=== PATIENT | male | born 1955 | race Caucasian/White ===

== ENCOUNTER 2017-07-15 07:18 | Outpatient (CLI) | payer BC ==
--- NOTE | 2017-07-15 09:03 | CT ---
CT ABDOMEN AND PELVIS WITH AND WITHOUT CONTRAST: HISTORY: Renal cyst history. COMPARISON: Outside facility renal ultrasound. FINDINGS: On the precontrast examination, no pericardial effusion. Lung bases are clear. No nephroureterolith iasis or hydroureteral nephrosis. No abnormal enhancing renal mass. There are multiple hypodensities of the liver suggestive of cysts. There is cholelithiasis without cholecystitis. The aortic contour is nonaneurysmal. The spleen is u nremarkable as well as the pancreas and adrenal glands. The skeleton is unremarkable. There is no filling defect within the renal calyces or renal pelves. IMPRESSION: 1. Bilateral renal cysts. 2. Multiple hepatic hypodensities suggestive of cysts. 3. Cholelithiasis. No evidence of cholecystitis. POS: [facility]
[2017-07-15] MEDS ORDERED: Iopamidol 370 76% 100 ML VIAL ONE (13:38)
== END 2017-07-15 07:19 | disposition home or self-care (01) ==
LOC: CT 07:18
PROVIDERS: ATTEND Nurse Practitioner Family
DX: N28.1 Cyst of kidney, acquired (principal); K80.20 Calculus of gallbladder without cholecystitis without obstruction; K76.89 Other specified diseases of liver
CPT/HCPCS: 74170

== ENCOUNTER 2017-09-17 07:30 | Outpatient (CLI) | payer BC | END 2017-09-17 07:31 | disposition home or self-care (01) | LOC: BICULT 07:30 | PROVIDERS: ATTEND Internal Medicine Nephrology | DX: N18.3 Chronic kidney disease, stage 3 (moderate) (principal); Q61.9 Cystic kidney disease, unspecified; Q61.02 Congenital multiple renal cysts | CPT/HCPCS: 76770 ==

== ENCOUNTER 2018-04-02 08:29 | Outpatient (CLI) | payer BC ==
--- NOTE | 2018-04-02 09:15 | RAD ---
CHEST TWO VIEWS: History: Cough. FINDINGS: Heart size and mediastinum are within normal limits. The lungs are clear of any infiltrative process. No significant bony findings. IMPRESSION: No active intrathoracic disease. POS: [facility]
== END 2018-04-02 08:30 | disposition home or self-care (01) ==
LOC: RAD-FRANK 08:29
PROVIDERS: ATTEND Nurse Practitioner Family
DX: R05 Cough (principal)
CPT/HCPCS: 71046

== ENCOUNTER 2018-06-09 13:46 | Outpatient (CLI) | payer BC ==
--- NOTE | 2018-06-09 15:16 | RAD ---
PA AND LATERAL CHEST XRAY: DATE: 06/09/2018. History Cough. COMPARISON: 04/02/2018. FINDINGS: Cardiac silhouette and pulmonary vasculature are within normal limits. The lungs are clear. Partial visualization of anterior cervical fusion is again present. There has been no interval change when compared to the prior exam. IMPRESSION: No acute cardiopulmonary process. POS: [facility]
== END 2018-06-09 13:47 | disposition home or self-care (01) ==
LOC: RAD-FRANK 13:46
PROVIDERS: ATTEND Nurse Practitioner Family
DX: R05 Cough (principal)
CPT/HCPCS: 71046

== ENCOUNTER 2018-06-24 07:10 | Emergency (ER) | payer BC ==
[2018-06-24] MEDS ORDERED: Ketorolac Tromethamine 60 MG/2 ML VIAL ONE (08:26)
[2018-06-24 08:30] LABS: Bilirubin Negative (Negative); Blood, Urine Negative (Negative); Clarity CLEAR (Clear); Glucose, Urine (Dipstick) Negative (Negative); Leukocyte Negative (Negative); Nitrite Negative (Negative); Protein, Urine (Dipstick) Negative (Neg-Trace); Specific Gravity, Urine 1.011 (1.002-1.036); Urobilinogen 0.2 mg/dL (0.2-1.0); pH, Urine 6.5 (5.0-9.0)
--- NOTE | 2018-06-24 08:35 | RAD ---
LUMBAR SPINE THREE VIEWS: History: Pain. Comparison: None. FINDINGS: Five lumbar type vertebral bodies. Lumbar spine vertebral body height is maintained. There is no frac ture. There is osteophyte formation in the distal thoracic spine and the lower lumbar spine. In the AP projection, mild rightward rotation which is presumed to be positional. IMPRESSION: No significant loss of disc space height. There is osteophyte formation. Non-emergent MRI if clinical ly warranted. POS: [facility]
== END 2018-06-24 09:25 | disposition home or self-care (01) ==
LOC: ERS 07:10
DX: M46.96 Unspecified inflammatory spondylopathy, lumbar region (principal); M54.5 Low back pain; K21.9 Gastro-esophageal reflux disease without esophagitis; I10 Essential (primary) hypertension; M10.9 Gout, unspecified; F41.9 Anxiety disorder, unspecified; Z79.899 Other long term (current) drug therapy
CPT/HCPCS: 72100; 81003; 96372; J1885

== ENCOUNTER 2018-10-28 07:09 | Outpatient (CLI) | payer BC ==
--- NOTE | 2018-10-28 09:40 | ULT ---
BILATERAL RENAL ULTRASOUND: Date: 10/28/18 HISTORY: Chronic kidney disease. Hypertension. FINDINGS: Both kidneys measure approximately 11.0 cm in length. No evidence of hydronephrosis. Cortical echogen icity appears normal. There is a 5.0 cm cyst in the superior left kidney and there is a 1.5 cm cyst exophytic mid left kidn ey. No solid lesions or mass seen. The urinary bladder is minimally distended and appears unremarkable. IMPRESSION: There are two left renal cystic lesions identified. Renal ultrasound exam otherwise unremarkable. POS: [facility]
== END 2018-10-28 07:10 | disposition home or self-care (01) ==
LOC: BICULT 07:09
PROVIDERS: ATTEND Internal Medicine Nephrology
DX: I12.9 Hypertensive chronic kidney disease with stage 1 through stage 4 chronic kidney disease, or unspecified chronic kidney disease (principal); N18.3 Chronic kidney disease, stage 3 (moderate); Q61.9 Cystic kidney disease, unspecified; N28.1 Cyst of kidney, acquired
CPT/HCPCS: 76770

== ENCOUNTER 2019-02-25 16:20 | Outpatient (CLI) | payer BC ==
--- NOTE | 2019-02-25 16:33 | RAD ---
EXAM: Two views chest PROVIDED CLINICAL HISTORY: Fever COMPARISON: 06/09/2018 FINDINGS: Cardiac silhouette and pulmonary vasculature are within normal limits. The lungs are clear. Mild deg enerative changes are again seen in the spine with mild right convex curvature of the thoracic spine. Incomplete visualization of postsurgical changes cervical spine are again seen. Chest is stable from prior exam. IMPRESSION: No acute cardiopulmonary process.
== END 2019-02-25 16:21 | disposition home or self-care (01) ==
LOC: RAD-FRANK 16:20
PROVIDERS: ATTEND Nurse Practitioner Family
DX: R07.9 Chest pain, unspecified (principal)
CPT/HCPCS: 71046

== ENCOUNTER 2019-07-20 19:52 | Emergency (ER) | payer BC ==
--- NOTE | 2019-07-20 21:28 | RAD ---
AP view of the pelvis INDICATION: Fall with left leg pain COMPARISON: None. FINDINGS: Bones: No acute fracture or subluxation is evident. Bone mineralization appears within normal limits. Hips: There is mild osteoarthrosis of the right and left hip. SI joints and symphysis pubis: Normal appearing. Intrapelvic contents: Within normal limits. IMPRESSION: No acute osseous abnormality.
--- NOTE | 2019-07-20 21:29 | RAD ---
XR Hip Lt 2-3 View INDICATION: Fall with left hip injury COMPARISON: None FINDINGS: Bones: No acute osseous abnormality. Bone mineralization appears within normal limits. Hip joint: There is mild osteoarthrosis of the left hip. SI joints and symphysis pubis: Radiographically normal. Intrapelvic contents: Visualized bowel gas pattern is within normal limits. Surrounding soft tissues: Radiographically normal. IMPRESSION: 1. No acute osseous abnormality.
--- NOTE | 2019-07-20 21:30 | RAD ---
XR Lumbar Spine 2 Or 3 View: 07/20/2019 9:01 PM Fall with low back pain COMPARISON: Prior exam dated June 24, 2018 FINDINGS: Fracture: None. Alignment: Spinal alignment appears within normal limits. Degenerative Change: Moderate multilevel spondylosis is stable Bone Mineralization:Normal Soft tissues: No acute abnormality. IMPRESSION: No acute fracture or subluxation demonstrated. Stable moderate multilevel lumbar spondylo sis.
== END 2019-07-20 23:09 | disposition home or self-care (01) ==
LOC: ERS 19:52
DX: M25.552 Pain in left hip (principal); M10.9 Gout, unspecified; K21.9 Gastro-esophageal reflux disease without esophagitis; I10 Essential (primary) hypertension; F41.9 Anxiety disorder, unspecified; Z79.899 Other long term (current) drug therapy; W01.0XXA Fall on same level from slipping, tripping and stumbling without subsequent striking against object, initial encounter
CPT/HCPCS: 72100; 72170

== ENCOUNTER 2019-08-03 07:39 | Outpatient (CLI) | payer BC ==
--- NOTE | 2019-08-03 09:13 | RAD ---
EXAM: 3 views of the lumbosacral spine HISTORY: Low back pain COMPARISON: 07/20/2019 FINDINGS: 3 lateral views of the lumbosacral spine shows normal height and alignment of the vertebral bodies and intervertebral discs without fracture or subluxation. Alignment is unchanged with flexion and extension. Small stable osteophytes are seen throughout the upper lumbar spine. Posterior facet arthrosis is seen in the lower lumbosacral spine. The sacroiliac joints are unremarkable. IMPRESSION: Degenerative changes of the lumbar spine with unchanged alignment with bending
--- NOTE | 2019-08-03 09:35 | MRI ---
MRI lumbar spine noncontrast HISTORY: Low back pain. Recent fall and injury. Left hip radiculopathy. FINDINGS: Images including the posterior abdomen show small rounded filling defects within the depend ent portion of the gallbladder lumen. Conus medullaris has a normal appearance. Vertebral body heights and alignment are maintained. There is desiccation of the lower 3 intervertebral discs. No abnormal bone marrow edema. T12-L1, L1-2: Mild osteophytosis. Central canal and neural foramina are patent. L2-3: Minimal disc bulge. No significant central canal or foraminal stenosis. L3-4: Small annular fissure within the right posterolateral aspect of the disc with slight right post erolateral disc bulge, not significantly compressing the nerve roots. There is osteophytosis of the facets. No significant central canal or foraminal stenosis. L4-5: Small bilateral posterolateral annular fissures of the disc with diffuse posterior and lateral disc bulge. Osteophytosis of the facets and posterior ligamentous thickening. Mild stenosis of the central canal. Mild to moderate stenosis of each neural foramen. L5-S1: Mild posterior disc bulge. Thecal sac is patent. Osteophytosis of the facets. Mild stenosis of each neural foramen. IMPRESSION: Mild degenerative changes of the lower lumbar spine. Small annular fissures involving the L3-4 and L4-5 discs with mild disc bulges. No focal disc herniation or nerve root compression. Cholelithiasis.
== END 2019-08-03 07:40 | disposition home or self-care (01) ==
LOC: TBSIIMAG 07:39
PROVIDERS: ATTEND Orthopaedic Surgery
DX: M54.5 Low back pain (principal); M47.816 Spondylosis without myelopathy or radiculopathy, lumbar region; M51.86 Other intervertebral disc disorders, lumbar region; K80.20 Calculus of gallbladder without cholecystitis without obstruction
CPT/HCPCS: 72100; 72148

== ENCOUNTER 2019-08-29 06:11 | Emergency (ER) | payer BC | END 2019-08-29 06:37 | disposition home or self-care (01) | LOC: ERS 06:11 | DX: M25.521 Pain in right elbow (principal); M10.9 Gout, unspecified; K21.9 Gastro-esophageal reflux disease without esophagitis; I10 Essential (primary) hypertension; F41.9 Anxiety disorder, unspecified; Z79.899 Other long term (current) drug therapy | CPT/HCPCS: 99283 ==

== ENCOUNTER 2019-08-30 08:11 | Emergency (ER) | payer BC ==
[2019-08-30] MEDS ORDERED: Ketorolac Tromethamine 30 MG/ML VIAL ONE (09:12)
== END 2019-08-30 09:50 | disposition home or self-care (01) ==
LOC: ERS 08:11
DX: M10.9 Gout, unspecified (principal); K21.9 Gastro-esophageal reflux disease without esophagitis; I10 Essential (primary) hypertension; F41.9 Anxiety disorder, unspecified; Z79.899 Other long term (current) drug therapy
CPT/HCPCS: 96372; 99283; J1885

== ENCOUNTER 2019-11-25 16:30 | Outpatient (CLI) | payer BC ==
--- NOTE | 2019-11-25 16:50 | RAD ---
Exam:Left hip 2 views HISTORY: Osteoarthritis. Pain. Patient fell 4 months ago. COMPARISON: 07/20/2019 FINDINGS: Preserved joint space. No fracture, cortical irregularity or periosteal reaction. IMPRESSION: No fracture. No significant change with regard to interval joint space height. There is s table mild osteophytic change
--- NOTE | 2019-11-25 16:51 | RAD ---
XR Knee Lt 2 View: 11/25/2019 12:00 AM CLINICAL INDICATION: Left knee pain COMPARISON: None. FINDINGS: Bones: No acute fracture is demonstrated. Joints: There are small marginal osteophytes affecting the major components of the left knee.. Soft Tissue: No acute abnormality.. IMPRESSION: Mild osteoarthrosis of the left knee..
== END 2019-11-25 16:31 | disposition home or self-care (01) ==
LOC: BICRAD 16:30
PROVIDERS: ATTEND Anesthesiology Pain Medicine
DX: M17.12 Unilateral primary osteoarthritis, left knee (principal); M16.12 Unilateral primary osteoarthritis, left hip; M25.752 Osteophyte, left hip

== ENCOUNTER 2019-12-30 07:45 | Outpatient (CLI) | payer BC ==
--- NOTE | 2019-12-30 09:15 | MRI ---
MRI LUMBAR SPINE WITHOUT CONTRAST: INDICATION: Lumbar radiculopathy. COMPARISON: Comparison is made to recent MRI lumbar spine dated 08/03/2019. FINDINGS: The lumbar vertebrae maintain normal height and alignment. Vertebral body signal is normal. Disk sp aces are preserved. L1-2: No significant disk bulge. Mild facet hypertrophy. No central canal or foraminal stenosis. L2-3: No significant disk bulge. Mild facet hypertrophy. No central canal or foraminal stenosis. L3-4: Mild broad-based disk bulge. There is an annular tear with asymmetric bulge/protrusion to the left. There is encroachment into the foraminal zone on the left and lateral extension of this later al left protrusion. This appears to contact the exiting left L3 nerve root as it exits the foramina on axial image. There is facet and ligamentous hypertrophy. Mild central canal stenosis. L4-5: There is a broad-based disk bulge. There is an annular fissure with asymmetric bulge/protrusi on to the left. Prominent facet and ligamentous hypertrophy. Mild to moderate central canal stenosi s. There is mild left foraminal encroachment due to the asymmetric disk which does extend into the f oraminal zone and extends laterally on the left. There is evidence of contact with the exiting left L4 nerve root. L5-S1: No significant disk bulge. Mild facet hypertrophy. No central canal or foraminal stenosis. IMPRESSION: 1. Annular fissures with asymmetric bulge/protrusion to the left at L3-4 and L4-5 as described above . Mild central canal stenosis at L3-4 and mild to moderate central canal stenosis at L4-5. 2. There continues to be evidence of small gallstones along the dependent wall of the gallbladder. Correlate with gallbladder ultrasound. POS: [facility]
--- NOTE | 2019-12-30 09:21 | MRI ---
MRI LEFT HIP WITHOUT CONTRAST: INDICATION: History of lumbar radiculopathy and left hip pain. COMPARISON: Left hip radiograph dated 11/15/2019. FINDINGS: There is a subchondral insufficiency fracture involving the superior femoral head with surrounding re active marrow edema involving the femoral head, femoral neck, and proximal femoral metastasis. There is mild subchondral collapse of the left superior femoral head. There is a reactive joint effusion involving the left hip joint. No corresponding fracture is evident involving the acetabulum. There is a subchondral cyst-like abnormality involving the posterior superior acetabulum. There is mild to moderate degenerative arthrosis of the left hip. There is a full-thickness tear involving the anter ior superior and superior acetabular labrum. There is degenerative intrasubstance signal involving t he acetabular labrum. The rectus femoris and hamstring origins appear within normal limits. No ilio psoas or trochanteric bursitis is evident. Visualized sciatic nerve is normal-appearing. Chondrolat eral right hip on the whole pelvis imaging demonstrates some mild degenerative arthrosis. IMPRESSION: 1. Subchondral insufficiency fracture of the left superior femoral head with mild subchondral collap se, surrounding marrow edema and reactive left hip effusion. 2. Anterior superior left acetabular labral tear with degenerative fraying of the acetabular labrum. 3. Mild to moderate degenerative arthrosis of the left hip. Mild degenerative arthrosis of the visu alized right hip. POS: [facility]
== END 2019-12-30 07:46 | disposition home or self-care (01) ==
LOC: TBSIIMAG 07:45
PROVIDERS: ATTEND Anesthesiology Pain Medicine
DX: M16.12 Unilateral primary osteoarthritis, left hip (principal); M51.16 Intervertebral disc disorders with radiculopathy, lumbar region; M48.061 Spinal stenosis, lumbar region without neurogenic claudication; K80.20 Calculus of gallbladder without cholecystitis without obstruction; S73.102A Unspecified sprain of left hip, initial encounter; M84.452A Pathological fracture, left femur, initial encounter for fracture
CPT/HCPCS: 72148

== ENCOUNTER 2020-02-16 07:55 | Outpatient (CLI) | payer BC, OTHER ==
[2020-02-16 14:27] LABS: Hemoglobin 15.5 g/dL (14.0-18.0); Mean Corpuscular HGB CONC 32.8 g/dL (32.0-36.0); Mean Corpuscular Volume 88.4 fL (78.0-98.0); Mean Platelet Volume 6.5 fL (7.4-10.4); Platelet Count 229 thou/uL (130-400); RBC Distribution Width 12.5 % (11.5-14.5); Red Blood Cell (RBC) Count 5.34 mill/uL (4.70-6.10)
[2020-02-16 14:31] LABS: Anion Gap 15 mmol/L (10-20); BUN (Urea Nitrogen) 15 mg/dL (8.4-25.7); Calc. Creatinine Clearance 0 mL/min (70-130); Calcium 9.4 mg/dL (7.8-10.44); Carbon Dioxide 23 mmol/L (23-31); Chloride 105 mmol/L (98-107); Estimated GFR-MDRD 55; Glucose 107 mg/dL (80-115); Potassium 4.2 mmol/L (3.5-5.1); Sodium 139 mmol/L (136-145)
[2020-02-16 14:44] LABS: PTT 33.6 sec (22.9-36.1); Prothrombin Time 12.7 sec (12.0-14.7)
[2020-02-17 13:02] LABS: SARS-CoV-2 MS2 Positive; SARS-CoV-2 N Gene Negative; SARS-CoV-2 S Gene Negative; SARS-CoV-2 by NAA Not Detected (NotDetected); SARS-CoV-2 orf1ab Negative
== END 2020-02-16 07:56 | disposition home or self-care (01) ==
LOC: LABBT 07:55
PROVIDERS: ATTEND Neurological Surgery
DX: Z01.818 Encounter for other preprocedural examination (principal); Z20.828 Contact with and (suspected) exposure to other viral communicable diseases; M48.061 Spinal stenosis, lumbar region without neurogenic claudication
CPT/HCPCS: 80048; 85027; 85610; 85730; 87635; 93005; 93010; U0003

== ENCOUNTER 2020-02-26 08:39 | Outpatient (CLI) | payer BC, OTHER ==
--- NOTE | 2020-02-26 10:44 | RAD ---
LEFT HIP 2 VIEWS: HISTORY: Pain. COMPARISON: 11/25/2019, left hip MRI 12/30/2019. FINDINGS: There is some superior femoral head subchondral collapse with some associated lucency. Mild osteoart hrosis and degenerative change. 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 Some irregularity of the femoral head superiorly, evidence for some probable subchondral collapse. N o fracture or dislocation. POS: [facility]
== END 2020-02-26 08:40 | disposition home or self-care (01) ==
LOC: RAD-FRANK 08:39
PROVIDERS: ATTEND Nurse Practitioner Family
DX: M25.552 Pain in left hip (principal); M25.852 Other specified joint disorders, left hip

== ENCOUNTER 2020-08-23 15:48 | Outpatient (CLI) | payer BC | END 2020-08-23 15:49 | disposition home or self-care (01) | LOC: BICRAD 15:48 | PROVIDERS: ATTEND Neurological Surgery | DX: M54.5 Low back pain (principal); M47.816 Spondylosis without myelopathy or radiculopathy, lumbar region | CPT/HCPCS: 72110 ==

== ENCOUNTER 2020-10-03 08:43 | Outpatient (CLI) | payer BC | END 2020-10-03 08:44 | disposition home or self-care (01) | LOC: TBSIIMAG 08:43 | PROVIDERS: ATTEND Neurological Surgery | DX: M54.5 Low back pain (principal); M48.061 Spinal stenosis, lumbar region without neurogenic claudication; Q05.7 Lumbar spina bifida without hydrocephalus; Q05.8 Sacral spina bifida without hydrocephalus; Z98.890 Other specified postprocedural states | CPT/HCPCS: 72148; 72158 ==

== ENCOUNTER 2021-02-20 07:33 | Outpatient (CLI) | payer BC | END 2021-02-20 07:34 | disposition home or self-care (01) | LOC: TBSIIMAG 07:33 | PROVIDERS: ATTEND Nurse Practitioner Family | DX: M48.062 Spinal stenosis, lumbar region with neurogenic claudication (principal); M51.86 Other intervertebral disc disorders, lumbar region; Z98.890 Other specified postprocedural states | CPT/HCPCS: 72148 ==

== ENCOUNTER 2021-04-06 11:28 | Outpatient (CLI) | payer BC, MEDICARE ==
[2021-04-06 13:25] LABS: Hemoglobin 15.1 g/dL (13.5-17.5); Mean Corpuscular HGB CONC 32.3 g/dL (32.0-36.0); Mean Corpuscular Hemoglobin 29.2 pg (27.0-33.0); Mean Corpuscular Volume 90.5 fl (81.2-95.1); Platelet Count 159 10x3/uL (150-450); RBC Distribution Width 13.7 % (11.5-14.5); Red Blood Cell (RBC) Count 5.17 10x6/uL (4.32-5.72)
[2021-04-06 13:36] LABS: Bilirubin Neg (Negative); Blood, Urine Negative (Negative); Clarity Clear (Clear); Glucose, Urine (Dipstick) Normal (Negative); Ketone, Urine Negative (Negative); Leukocyte 25 (Negative); Nitrite Negative (Negative); Protein, Urine (Dipstick) Negative (Neg-Trace); Specific Gravity, Urine 1.005 (1.002-1.036); Urobilinogen Normal mg/dL (Less than 2)
[2021-04-06 13:43] LABS: Anion Gap 16 mmol/L (10-20); BUN (Urea Nitrogen) 17 mg/dL (8.4-25.7); Calc. Creatinine Clearance 0 mL/min (70-130); Calcium 9.7 mg/dL (7.8-10.44); Carbon Dioxide 25 mmol/L (23-31); Chloride 104 mmol/L (98-107); Glucose 97 mg/dL (80-115); Potassium 4.1 mmol/L (3.5-5.1); Sodium 141 mmol/L (136-145)
[2021-04-06 14:28] LABS: Bacteria/HPF None Seen HPF (None Seen); RBC/HPF None Seen HPF (0-3); Squamous Epithelial 0-3 HPF (0-3); WBC/HPF None Seen HPF (0-3)
[2021-04-07 01:42] LABS: SARS-CoV-2 PCR by NAA Not Detected (NotDetected)
== END 2021-04-06 11:29 | disposition home or self-care (01) ==
LOC: LABBT 11:28
PROVIDERS: ATTEND Urology
DX: Z01.818 Encounter for other preprocedural examination (principal); N40.1 Benign prostatic hyperplasia with lower urinary tract symptoms; N32.81 Overactive bladder; Z20.822 Contact with and (suspected) exposure to COVID-19
CPT/HCPCS: 80048; 81001; 85027; 87086; 93005; 93010; U0003; U0005

== ENCOUNTER 2021-04-11 06:20 | Day surgery (SDC) | payer BC ==
[2021-04-10 12:14] VITALS: BMI 31.8
[2021-04-11] MEDS ORDERED: Fentanyl 100 MCG/2 ML VIAL ONE (06:48)
[2021-04-11] MEDS ORDERED: Levofloxacin 500 mg/D5W 100 ml Premix Bag ONE (07:06)
[2021-04-11] MEDS ORDERED: Midazolam HCl 2 mg/2 ml Vial ONE (07:14)
[2021-04-11] MEDS ORDERED: PROPOFOL 200 MG/20 ML VIAL ONE (07:25)
[2021-04-11] MEDS ORDERED: PHENYLEPHRINE-NS 100 MCG/ML 10 ML SYRINGE ONE (07:25)
[2021-04-11] MEDS ORDERED: Morphine 4 MG/ML VIAL ONE (08:25)
[2021-04-11] MEDS ORDERED: Ketorolac Tromethamine 30 MG/ML VIAL ONE (08:47)
[2021-04-11] MEDS ORDERED: Oxybutynin 5 MG TAB ONE (08:47)
[2021-04-11] MEDS ORDERED: Phenazopyridine HCl 100 MG TAB ONE (08:47)
== END 2021-04-11 10:49 | disposition home or self-care (01) ==
LOC: SDC 06:20
PROVIDERS: ATTEND Urology
PROC: 0T7D8DZ Dilation of Urethra with Intraluminal Device, Via Natural or Artificial Opening Endoscopic (ICD-10-PCS; principal; 2021-04-11)
DX: N40.1 Benign prostatic hyperplasia with lower urinary tract symptoms (principal); N35.912 Unspecified bulbous urethral stricture, male; I10 Essential (primary) hypertension; M10.9 Gout, unspecified; K21.9 Gastro-esophageal reflux disease without esophagitis; G47.33 Obstructive sleep apnea (adult) (pediatric); Z79.899 Other long term (current) drug therapy; Z88.5 Allergy status to narcotic agent; Z88.8 Allergy status to other drugs, medicaments and biological substances; Z98.1 Arthrodesis status
CPT/HCPCS: J1885; J1956; J2250; J2270; J2704; J3010; L8699

== ENCOUNTER 2021-06-22 11:59 | Outpatient (CLI) | payer BC, MEDICARE ==
[2021-06-22 13:13] LABS: Mean Corpuscular HGB CONC 31.8 g/dL (32.0-36.0); Mean Corpuscular Hemoglobin 28.6 pg (27.0-33.0); Mean Corpuscular Volume 89.9 fl (81.2-95.1); Mean Platelet Volume 9.2 fl (7.4-10.4); Platelet Count 219 10x3/uL (150-450); RBC Distribution Width 12.7 % (11.5-14.5); Red Blood Cell (RBC) Count 5.24 10x6/uL (4.32-5.72); White Blood Cell (WBC) Count 8.6 10x3/uL (3.5-10.5)
[2021-06-22 13:17] LABS: Bilirubin Neg (Negative); Blood, Urine Negative (Negative); Clarity Clear (Clear); Glucose, Urine (Dipstick) Normal (Negative); Ketone, Urine Negative (Negative); Leukocyte 25 (Negative); Nitrite Negative (Negative); Protein, Urine (Dipstick) Negative (Neg-Trace); Urobilinogen Normal mg/dL (Less than 2); pH, Urine 6.5 (5.0-9.0)
[2021-06-22 13:29] LABS: Anion Gap 13 mmol/L (10-20); BUN (Urea Nitrogen) 16 mg/dL (8.4-25.7); Calc. Creatinine Clearance 0 mL/min (70-130); Calcium 9.4 mg/dL (7.8-10.44); Carbon Dioxide 28 mmol/L (23-31); Chloride 104 mmol/L (98-107); Glucose 98 mg/dL (80-115); Potassium 4.1 mmol/L (3.5-5.1); Sodium 141 mmol/L (136-145)
[2021-06-22 13:31] LABS: RBC/HPF 0-3 HPF (0-3)
[2021-06-22 13:34] LABS: Bacteria/HPF 1+ HPF (None Seen)
[2021-06-22 13:35] LABS: Mucous/LPF Rare LPF (<2+); Transitional Epithelial 0-3 HPF (None Seen)
[2021-06-23 13:49] LABS: SARS-CoV-2 PCR by NAA Not Detected (NotDetected)
== END 2021-06-22 12:00 | disposition home or self-care (01) ==
LOC: LABBT 11:59
PROVIDERS: ATTEND Urology
DX: Z01.818 Encounter for other preprocedural examination (principal); N40.1 Benign prostatic hyperplasia with lower urinary tract symptoms; N35.914 Unspecified anterior urethral stricture, male; Z20.822 Contact with and (suspected) exposure to COVID-19
CPT/HCPCS: 80048; 81001; 85027; 87086; 93005; 93010; U0003; U0005

== ENCOUNTER 2021-06-27 06:31 | Day surgery (SDC) | payer BC ==
[2021-06-20 14:42] VITALS: BMI 31.1
[2021-06-27] MEDS ORDERED: Triamcinolone 40 MG/ML VIAL ONE (06:52)
[2021-06-27] MEDS ORDERED: Levofloxacin 500 mg/D5W 100 ml Premix Bag ONE (08:15)
[2021-06-27] MEDS ORDERED: Fentanyl 100 MCG/2 ML VIAL ONE ×3 (08:16→10:13)
[2021-06-27] MEDS ORDERED: HYDROmorphone 2 MG/ML VIAL ONE (08:16)
[2021-06-27] MEDS ORDERED: Midazolam HCl 2 mg/2 ml Vial ONE (08:16)
[2021-06-27] MEDS ORDERED: PHENYLEPHRINE-NS 100 MCG/ML 10 ML SYRINGE ONE (08:26)
[2021-06-27] MEDS ORDERED: Lidocaine 1% PF 5 ML VIAL ONE (08:26)
[2021-06-27] MEDS ORDERED: Ondansetron PF 4 MG/2 ML Vial ONE (08:26)
[2021-06-27] MEDS ORDERED: Dexamethasone 20 MG/5 ML VIAL ONE (08:26)
[2021-06-27] MEDS ORDERED: PROPOFOL 200 MG/20 ML VIAL ONE (08:26)
[2021-06-27] MEDS ORDERED: Phenazopyridine HCl 100 MG TAB ONE (09:45)
[2021-06-27] MEDS ORDERED: Ketorolac Tromethamine 30 MG/ML VIAL ONE (09:45)
[2021-06-27] MEDS ORDERED: Oxybutynin 5 MG TAB ONE (09:46)
[2021-06-27] MEDS ORDERED: traMADol HCl 50 MG TAB ONE (11:36)
== END 2021-06-27 13:25 | disposition home or self-care (01) ==
LOC: SDC 06:31
PROVIDERS: ATTEND Urology
PROC: 0V507ZZ Destruction of Prostate, Via Natural or Artificial Opening (ICD-10-PCS; principal; 2021-06-27)
PROC: 0TND8ZZ Release Urethra, Via Natural or Artificial Opening Endoscopic (ICD-10-PCS; principal; 2021-06-27)
DX: N40.1 Benign prostatic hyperplasia with lower urinary tract symptoms (principal); N35.912 Unspecified bulbous urethral stricture, male; N13.8 Other obstructive and reflux uropathy; N32.89 Other specified disorders of bladder; K21.9 Gastro-esophageal reflux disease without esophagitis; M10.9 Gout, unspecified; I10 Essential (primary) hypertension; G47.33 Obstructive sleep apnea (adult) (pediatric); Z79.899 Other long term (current) drug therapy; Z88.5 Allergy status to narcotic agent; Z88.8 Allergy status to other drugs, medicaments and biological substances; Z98.1 Arthrodesis status
CPT/HCPCS: J1170; J1885; J1956; J2250; J3010; J3301

== ENCOUNTER 2022-06-19 08:08 | Outpatient (CLI) | payer BC | END 2022-06-19 08:09 | disposition home or self-care (01) | LOC: BICRAD 08:08 | PROVIDERS: ATTEND Anesthesiology Pain Medicine | DX: M16.0 Bilateral primary osteoarthritis of hip (principal); M87.88 Other osteonecrosis, other site; M25.852 Other specified joint disorders, left hip ==

== ENCOUNTER 2022-08-01 09:55 | Outpatient (CLI) | payer BC | END 2022-08-01 09:56 | disposition home or self-care (01) | LOC: RAD-FRANK 09:55 | PROVIDERS: ATTEND Nurse Practitioner Family | DX: R50.9 Fever, unspecified (principal) | CPT/HCPCS: 71046 ==

== ENCOUNTER 2022-10-01 07:35 | Outpatient (CLI) | payer BC | END 2022-10-01 07:36 | disposition home or self-care (01) | LOC: TBSIIMAG 07:35 | PROVIDERS: ATTEND Anesthesiology Pain Medicine | DX: M54.16 Radiculopathy, lumbar region (principal); Z98.890 Other specified postprocedural states; M48.061 Spinal stenosis, lumbar region without neurogenic claudication | CPT/HCPCS: 72148 ==

== ENCOUNTER 2022-10-23 15:31 | Outpatient (CLI) | payer BC | END 2022-10-23 15:32 | disposition home or self-care (01) | LOC: RAD 15:31 | PROVIDERS: ATTEND Neurological Surgery | DX: M47.26 Other spondylosis with radiculopathy, lumbar region (principal) | CPT/HCPCS: 72110 ==

== ENCOUNTER 2023-01-08 17:30 | Outpatient (CLI) | payer BC | END 2023-01-08 17:31 | disposition home or self-care (01) | LOC: SLEEPLAB 17:30 | PROVIDERS: ATTEND Internal Medicine Critical Care Medicine | DX: G47.33 Obstructive sleep apnea (adult) (pediatric) (principal) | CPT/HCPCS: 95800 ==